=== PATIENT | male | born 1985 | race Caucasian/White ===

== ENCOUNTER 2018-07-26 17:56 | Emergency (ER) | payer OTHER, SELFPAY ==
[2018-07-26 17:57] VITALS: BP 169/96; PULSE 99; RESP 17; TEMP 37; O2SAT 96; BMI 49.3
--- NOTE | 2018-07-26 18:10 | RAD_ITS ---
STUDY: X-RAY - LEFT KNEE REASON FOR EXAM: Male, 32 years old. Left knee pain status post slipping on ice. TECHNIQUE: 4 view(s) of the knee. COMPARISON: None. FINDINGS: There is a small suprapatellar bursal effusion. There is no fracture or dislocation. Joint spaces are well-maintained. Soft tissues and bony structures are otherwise unremarkable. RAD/Knee 4 or More Views IMPRESSION: Small effusion, otherwise unremarkable study. Electronically Signed: Concepción Srinivasan MD at 18:55 EST Tel , Service support ,
--- NOTE | 2018-07-26 19:14 | ED.DEP ---
ED Disposition - Plan for ED Patient: Chief Complaint: Lower Extremity Injury Instructions: ED Sprain Knee Prescriptions: Naproxen [Naprosyn] 500 mg PO BID PRN #20 tablet Referrals: Care Physician,No Primary [Primary Care Provider] - Anen Mcallister DO [STAFF PHYSICIAN] -
--- NOTE | 2018-07-26 19:18 | ED.VISSUMM ---
- ER Visit Summary Date of Service: 07/26/18 Chief Complaint: Left knee pain History of Present Illness: The patient is a 32 M presenting with left knee pain. Patient states he slipped on ice yesterday and twisted his left knee. He has been able to ambulate. He complains of persistent pain in his left knee. He did not hit his head or lose consciousness. He tried no medication prior to arrival. No other injuries. Physical Examination: Vitals are stable. Patient is afebrile. Alert no acute distress. HEENT exam is unremarkable. Neck is nontender Lungs are clear and equal bilaterally. Heart is regular rate and rhythm. Extremities left anterior knee tenderness with active full range of motion. Normal distal pulse. Skin is warm and dry. Remainder of exam is unremarkable. Emergency Department Course and Treatment: X-ray left knee shows there is a small suprapatellar bursal effusion. There is no fracture or dislocation. Patient is advised to ice and elevate. He is given a prescription for Naprosyn. Advised return to ED for worsening complaints. Advised to follow-up with Dr. Mcallister account liaison hospice for no doc. Disposition: Discharge home Impression: Left knee sprain This note was generated with [employer] dictation software. It may contain incorrect words, spelling, and punctuation that were not noted in review of the chart prior to signing ED Disposition - Plan for ED Patient: Chief Complaint: Lower Extremity Injury Instructions: ED Sprain Knee Prescriptions: Naproxen [Naprosyn] 500 mg PO BID PRN #20 tablet Referrals: Anne Mcallister DO [STAFF PHYSICIAN] - Care Physician,No Primary [Primary Care Provider] -
--- NOTE | 2018-07-26 19:21 | ED.DCSUM_ITS ---
- ER Visit Summary Date of Service: 07/26/18 Chief Complaint: Left knee pain History of Present Illness: The patient is a 32 M presenting with left knee pain. Patient states he slipped on ice yesterday and twisted his left knee. He has been able to ambulate. He complains of persistent pain in his left knee. He did not hit his head or lose consciousness. He tried no medication prior to arrival. No other injuries. Physical Examination: Vitals are stable. Patient is afebrile. Alert no acute distress. HEENT exam is unremarkable. Neck is nontender Lungs are clear and equal bilaterally. Heart is regular rate and rhythm. Extremities left anterior knee tenderness with active full range of motion. Normal distal pulse. Skin is warm and dry. Remainder of exam is unremarkable. Emergency Department Course and Treatment: X-ray left knee shows there is a small suprapatellar bursal effusion. There is no fracture or dislocation. Patient is advised to ice and elevate. He is given a prescription for Naprosyn. Advised return to ED for worsening complaints. Advised to follow-up with Dr. Mcallister production planning manager for no doc. Disposition: Discharge home Impression: Left knee sprain This note was generated with [employer] dictation software. It may contain incorrect words, spelling, and punctuation that were not noted in review of the chart prior to signing ED Disposition - Plan for ED Patient: Chief Complaint: Lower Extremity Injury Instructions: ED Sprain Knee Prescriptions: Naproxen [Naprosyn] 500 mg PO BID PRN #20 tablet Referrals: Anne Mcallister DO [STAFF PHYSICIAN] - Care Physician,No Primary [Primary Care Provider] -
[2018-07-26 19:31] VITALS: BP 179/123; PULSE 74; RESP 14
--- NOTE | 2018-07-26 19:36 | ED.RN ---
PT'S BP WAS ELEVATED UPON D/C, PT REPORTS HAVING A HISTORY OF HIGH BLOOD PRESSURE AND STATES I HAVEN'T DONE ANYTHING ABOUT IT YET AND I KNOW I NEED TO GET A DOC. PT DECLINED ANY FURTHER TREATMENT AND WALKED OFF UNIT VIA AMBULATION STEADY GAIT.
== END 2018-07-26 19:34 | disposition home or self-care (01) ==
LOC: ED 18:56
PROVIDERS: Emergency Provider Emergency Medicine
DX: S83.92XA Sprain of unspecified site of left knee, initial encounter (principal); W00.0XXA Fall on same level due to ice and snow, initial encounter; Y93.9 Activity, unspecified; Y92.9 Unspecified place or not applicable; Y99.9 Unspecified external cause status
CPT/HCPCS: 73564; 99282